=== PATIENT | male | born 1960 | race Caucasian/White ===

== ENCOUNTER → 2017-01-31 | Outpatient (CLI) | payer BC ==
[~2017-01-31] MED LIST: ASPI-586 PO; ATOR80TA76 PO; Aspirin PO; Atorvastatin Calcium PO; FENO145T20 PO; LOSA50TA36 PO; METO-333 PO; METO25TA2 PO; OLME20TA21 PO; OMEP40CA36 PO
[2017-01-31 08:47] LABS: ALANINE AMINOTRANSFERASE 15 U/L (0-55); ALBUMIN 4.1 G/DL (3.2-4.5); ANION GAP 8 MMOL/L (5-14); ASPARTATE AMINO TRANSFERASE 20 U/L (5-34); BILIRUBIN,TOTAL 0.4 MG/DL (0.1-1.0); BLOOD UREA NITROGEN 18 MG/DL (7-18); BUN/CREATININE RATIO 16; CALCIUM 9.7 MG/DL (8.5-10.1); CARBON DIOXIDE 27 MMOL/L (21-32); CHLORIDE 106 MMOL/L (98-107); CHOLESTEROL 213 MG/DL (< 200); CREATININE SERUM 1.13 MG/DL (0.60-1.30); DIRECT LDL 147 MG/DL (1-129); GFR ESTIMATED > 60; GLUCOSE 90 MG/DL (70-105); POTASSIUM 3.6 MMOL/L (3.6-5.0); SODIUM 141 MMOL/L (135-145); TRIGLYCERIDES 61 MG/DL (<150); VLDL CHOLESTEROL 12 MG/DL (5-40)
== END ==
LOC: LAB 08:18
PROVIDERS: ATTEND Physician Assistant
DX: I25.10 Atherosclerotic heart disease of native coronary artery without angina pectoris (principal); I50.22 Chronic systolic (congestive) heart failure; E78.2 Mixed hyperlipidemia; I10 Essential (primary) hypertension
CPT/HCPCS: 36415; 80053; 80061

== ENCOUNTER → 2017-09-15 | Outpatient (CLI) | payer BC ==
[~2017-09-15] MED LIST changes: +BARIUM SUSPENSION 105% (LIQUID POLIBAR PLUS) 240 ML/DOSE PO ONE; +BARIUM SUSPENSION 60% (LIQUID EZ PAQUE) 240 ML DOSE PO ONE
--- NOTE | 2017-09-15 13:11 | Diagnostic Imaging Report ---
EXAMINATION: Barium swallow double-contrast. INDICATION: Dysphagia. Suspected Zenker's diverticulum FLUOROSCOPY TIME: 1 minute and 56 seconds. TECHNIQUE: A hydrochloric acid operator image of the chest was performed. Subsequently, the patient was given gas forming granules for oral ingestion followed by thick and thin barium to drink. Swallowing through the esophagus was observed with fluoroscopy and overhead images as well as multiple spot images in the upright and prone positions were taken. FINDINGS: The hydrochloric acid operator image of the chest demonstrates no significant abnormality. No significant reflux was seen during the study. Normal motility is seen. There is accumulation of contrast in a pouch located posterior to the upper esophagus with a total size of 4.6 x 2.1 x 4 cm. The communication with the esophagus is at the C6 level. This is suggestive of a Zenker's diverticulum. There is a small to moderate-sized sliding hiatal hernia. The esophagus otherwise is normal in contour and caliber. No significant motility dysfunction although occasional tertiary contractions are seen. IMPRESSION: 1. There is a Zenker's diverticulum. 2. Small to moderate sliding hiatal hernia. The report was faxed to the office of Dr. Gurpreet Veronica by KAYLIN@ 1:10 PM. Dictated by: Dictated on workstation # [id number]
== END ==
LOC: RAD 10:09
PROVIDERS: ATTEND Otolaryngology Otolaryngology/Facial Plastic Surgery
DX: K22.5 Diverticulum of esophagus, acquired (principal); K44.9 Diaphragmatic hernia without obstruction or gangrene
CPT/HCPCS: 74220

== ENCOUNTER → 2018-02-06 | Outpatient (CLI) | payer BC ==
[~2018-02-06] MED LIST changes: -BARIUM SUSPENSION 105% (LIQUID POLIBAR PLUS) 240 ML/DOSE PO ONE; -BARIUM SUSPENSION 60% (LIQUID EZ PAQUE) 240 ML DOSE PO ONE; -FENO145T20 PO; +FENO145T37 PO
== END ==
LOC: CARD 09:55
PROVIDERS: ATTEND Internal Medicine Cardiovascular Disease
DX: I25.10 Atherosclerotic heart disease of native coronary artery without angina pectoris (principal); I11.0 Hypertensive heart disease with heart failure; I50.22 Chronic systolic (congestive) heart failure; R07.9 Chest pain, unspecified; E78.5 Hyperlipidemia, unspecified; I44.7 Left bundle-branch block, unspecified; Z80.9 Family history of malignant neoplasm, unspecified; I08.1 Rheumatic disorders of both mitral and tricuspid valves
CPT/HCPCS: 93306

== ENCOUNTER → 2018-02-21 | Outpatient (CLI) | payer BC ==
[2018-02-21 08:48] LABS: ALBUMIN 4.3 GM/DL (3.2-4.5); BILIRUBIN,DIRECT 0.2 MG/DL (0.0-0.3); BILIRUBIN,INDIRECT 0.5 MG/DL; BILIRUBIN,TOTAL 0.7 MG/DL (0.1-1.0); TOTAL PROTEIN 6.9 GM/DL (6.4-8.2)
== END ==
LOC: LAB 08:09
PROVIDERS: ATTEND Internal Medicine Cardiovascular Disease
DX: I25.10 Atherosclerotic heart disease of native coronary artery without angina pectoris (principal); I11.0 Hypertensive heart disease with heart failure; I50.9 Heart failure, unspecified; R07.89 Other chest pain; I44.7 Left bundle-branch block, unspecified; E78.5 Hyperlipidemia, unspecified
CPT/HCPCS: 36415; 80061; 80076

== ENCOUNTER 2019-01-02 05:42 | Outpatient (CLI) | payer BC ==
[~2019-01-02] VITALS: Ht 182.9 cm; Wt 90.7 kg
[~2019-01-02 05:42] MED LIST changes: -LOSA50TA36 PO; +LOSA50TA63 PO
[2019-01-02] MEDS ORDERED: PANT40TA3 PO (09:56)
[2019-01-02] MEDS ORDERED: ATOR40TA70 PO (09:56)
== END 2019-01-02 09:59 | disposition home or self-care (01) ==
LOC: PREOP 05:42
PROVIDERS: ATTEND Specialist
DX: Z01.818 Encounter for other preprocedural examination (principal)

== ENCOUNTER 2019-01-04 05:59 | Day surgery (SDC) | payer BC ==
[~2019-01-04] VITALS: Ht 182.9 cm; Wt 90.7 kg
[~2019-01-04 05:59] MED LIST changes: +ATOR40TA70 PO; +PANT40TA3 PO
[2019-01-04 06:00] VITALS: BP 147/84
[2019-01-04] MEDS ORDERED: LIDOCAINE PF 1% 2 ML AMP IR PRN (06:15)
[2019-01-04] MEDS ORDERED: TIMOLOL MALEATE 0.5% 5 ML (TIMOPTIC) BTL OU PRN (06:15)
[2019-01-04] MEDS ORDERED: POVIDONE (BETADINE) OPHTH SOLN 5% 30 ML OP ONE (06:15)
[2019-01-04] MEDS ORDERED: MOXIFLOXACIN OPHTH SOLN 5 MG/ML 0.3 ML SYRINGE OP ONE (06:15)
[2019-01-04] MEDS: TETRACAINE 0.5% OPHTH SOLN 4 ML BTL (SINGLE DOSE ONLY) OU PRN ×4 (06:19→06:41)
[2019-01-04] MEDS: CYCLOPENTOLATE 1% (CYCLOGYL) 2 ML DROPS OP SCH ×3 (06:29→06:41)
[2019-01-04] MEDS: PHENYLEPHRINE 10% OPHTH (NEO-SYN) 5 ML BTL OU SCH ×3 (06:30→06:41)
[2019-01-04] MEDS ORDERED: MIDAZOLAM 2 MG/2 ML (VERSED) VIAL ONE (06:52)
--- NOTE | 2019-01-04 07:02 | Ophthalmologist Pre-Op Note ---
Pre-Operative Progress Note H&P Reviewed The H&P was reviewed, patient examined and no changes noted. Date H&P Reviewed: Jan 04, 2019 Time H&P Reviewed: 07:02 Pre-Op Dx Cataract, Right Eye DARIEL MCKENZIE MD Jan 04, 2019 07:02
--- NOTE | 2019-01-04 07:28 | Ophthalmology Operative Report ---
Cataract removal/placement IOL PREOPERATIVE DIAGNOSIS: Cataract Right Eye POSTOPERATIVE DIAGNOSIS: Cataract Right Eye PROCEDURE: Cataract removal and placement of posterior chamber implant, right eye SURGEON: Harley Mckenzie ANESTHESIA: Topical with sedation COMPLICATIONS: None ESTIMATED BLOOD LOSS: Minimal DESCRIPTION OF PROCEDURE: After proper informed consent was obtained, the patient, a 58 male, was taken to the Operating Room and the right eye was anesthetized with tetracaine. The right eye was then prepped and draped in the usual manner. A wire lid speculum was placed. A paracentesis was made at the left hand position. Preservative free lidocaine was injected into the anterior chamber followed by viscoelastic. A clear corneal incision was made in the temporal position. A capsulorrhexis was preformed and the central nuclear and cortical material were removed. The posterior capsule was polished and Sami 23.5 AU00T0 IOL was placed into the capsular bag. The residual viscoelastic was aspirated and balanced saline solution was injected into the anterior chamber. Moxifloxacin was injected into the anterior chamber. The wound was checked and found to be water tight. The patient tolerated the procedure well without complications. HARLEY MCKENZIE MD Jan 04, 2019 07:28
[2019-01-04] MEDS ORDERED: acetaZOLAMIDE ER 500 MG CAP (DIAMOX SEQUELS) PO ONE (07:30)
[2019-01-04 07:38] VITALS: BP 123/78
== END 2019-01-04 07:37 | disposition home or self-care (01) ==
LOC: SDC 05:59
PROVIDERS: ATTEND Specialist
DX: H25.11 Age-related nuclear cataract, right eye (principal); I10 Essential (primary) hypertension; K21.9 Gastro-esophageal reflux disease without esophagitis; Z79.82 Long term (current) use of aspirin; Z79.899 Other long term (current) drug therapy

== ENCOUNTER 2019-01-30 11:30 | Outpatient (CLI) | payer BC ==
[~2019-01-30] VITALS: Ht 182.9 cm; Wt 90.7 kg
== END 2019-01-30 14:51 | disposition home or self-care (01) ==
LOC: PREOP 11:30
PROVIDERS: ATTEND Specialist
DX: Z01.818 Encounter for other preprocedural examination (principal)

== ENCOUNTER 2019-02-01 07:36 | Day surgery (SDC) | payer BC ==
[~2019-02-01] VITALS: Ht 182.9 cm; Wt 90.7 kg
[2019-02-01 07:45] VITALS: BP 133/87
[2019-02-01] MEDS ORDERED: LIDOCAINE PF 1% 2 ML AMP IR PRN (08:00)
[2019-02-01] MEDS ORDERED: MOXIFLOXACIN OPHTH SOLN 5 MG/ML 0.3 ML SYRINGE OP ONE (08:00)
[2019-02-01] MEDS ORDERED: POVIDONE (BETADINE) OPHTH SOLN 5% 30 ML OP ONE (08:00)
[2019-02-01] MEDS: TETRACAINE 0.5% OPHTH SOLN 4 ML BTL (SINGLE DOSE ONLY) OU PRN ×4 (08:00→08:10)
[2019-02-01] MEDS ORDERED: TIMOLOL MALEATE 0.5% 5 ML (TIMOPTIC) BTL OU PRN (08:00)
--- NOTE | 2019-02-01 08:00 | Progress Note-Pre Operative ---
Pre-Operative Progress Note H&P Reviewed The H&P was reviewed, patient examined and no changes noted. Date Seen by Provider: February 01, 2019 Time Seen by Provider: 08:00 Date H&P Reviewed: February 01, 2019 Time H&P Reviewed: 08:00 Pre-Operative Diagnosis: Refractive [place] R eye DARIEL MCKENZIE MD February 01, 2019 08:00
[2019-02-01] MEDS: CYCLOPENTOLATE 1% (CYCLOGYL) 2 ML DROPS OP SCH ×3 (08:04→08:10)
[2019-02-01] MEDS: PHENYLEPHRINE 10% OPHTH (NEO-SYN) 5 ML BTL OU SCH ×3 (08:04→08:10)
[2019-02-01] MEDS ORDERED: MIDAZOLAM 2 MG/2 ML (VERSED) VIAL ONE (08:12)
[2019-02-01 09:00] VITALS: BP 127/78
[2019-02-01] MEDS ORDERED: acetaZOLAMIDE ER 500 MG CAP (DIAMOX SEQUELS) PO ONE (09:00)
--- NOTE | 2019-02-01 10:38 | Anesthesia-General Post-Op ---
MAC Patient Condition Mental Status/LOC: Same as Preop Cardiovascular: Satisfactory Nausea/Vomiting: Absent Respiratory: Satisfactory Pain: Controlled Complications: Absent Post Op Complications Complications None Follow Up Care/Instructions Patient Instructions None needed. Anesthesiology Discharge Order Discharge Order Patient was seen after the procedure and he was doing well, no complaints, stable vital signs, no apparent adverse anesthesia problems. RAE DAVENPORT DO February 01, 2019 10:38
--- NOTE | 2019-02-01 20:02 | OPERATIVE REPORT ---
DATE OF SERVICE: 02/01/2019 PREOPERATIVE DIAGNOSIS: Refractive surprise, right eye. POSTOPERATIVE DIAGNOSIS: Refractive surprise, right eye. PROCEDURE: IOL exchange, right eye. ANESTHESIA: Topical with IV sedation. COMPLICATIONS: None. DESCRIPTION OF PROCEDURE: An informed consent was obtained from the patient and placed in the chart. His right pupil was dilated and then the eye was anesthetized. Then, he was taken to the operating room and placed in the supine position on the operating table. He was sedated by the anesthesia provider. He was prepped and draped in the usual sterile fashion. A wire lid speculum was placed. Attention was directed to the patient's right eye and the previous paracentesis was reopened and preservative-free lidocaine was injected into the anterior chamber followed by viscoelastic. The temporal incision was then reopened with a spatula as well. A spatula and chopper were used to free up the lens inside the bag and then the lens was prolapsed out of the capsular bag into the anterior chamber. Vannas scissors were used to cross cut the lens and the fragments were removed from the eye. The anterior chamber was refilled with viscoelastic and an [place] AU00T0 19.5 diopter lens was placed into the capsular bag. The residual viscoelastic was aspirated. Anterior chamber was inflated to the appropriate pressure with balance salt saline and moxifloxacin was injected into the anterior chamber. The wounds were checked and found to be watertight. The wire lid speculum was removed. The surgical drapes were then removed as well. The patient tolerated the procedure well and was taken to the recovery room in stable condition. Job ID: [id number] DocumentID: [id number] Dictated Date: 02/01/2019 09:52:53 Social Economist Date: 02/01/2019 20:01:12 Dictated By: DARIEL MCKENZIE MD
== END 2019-02-01 09:00 | disposition home or self-care (01) ==
LOC: SDC 07:36
PROVIDERS: ATTEND Specialist
DX: H59.091 Other disorders of the right eye following cataract surgery (principal); I10 Essential (primary) hypertension; K21.9 Gastro-esophageal reflux disease without esophagitis; Z79.82 Long term (current) use of aspirin; Z79.899 Other long term (current) drug therapy

== ENCOUNTER → 2019-07-18 | Outpatient (CLI) | payer BC, OTHER ==
[2019-07-18 09:16] LABS: ALANINE AMINOTRANSFERASE 25 U/L (0-55); ALBUMIN 4.3 GM/DL (3.2-4.5); ALKALINE PHOSPHATASE 49 U/L (40-136); BILIRUBIN,TOTAL 0.5 MG/DL (0.1-1.0); BUN/CREATININE RATIO 15; CALCIUM 9.5 MG/DL (8.5-10.1); CARBON DIOXIDE 27 MMOL/L (21-32); CHLORIDE 109 MMOL/L (98-107); CHOLESTEROL 161 MG/DL (< 200); CREATININE SERUM 1.14 MG/DL (0.60-1.30); GFR ESTIMATED > 60; GLUCOSE 96 MG/DL (70-105); HDL CHOLESTEROL 52 MG/DL (40-60); POTASSIUM 3.9 MMOL/L (3.6-5.0); SODIUM 144 MMOL/L (135-145); TOTAL PROTEIN 7.1 GM/DL (6.4-8.2); TRIGLYCERIDES 55 MG/DL (<150); VLDL CHOLESTEROL 11 MG/DL (5-40)
== END ==
LOC: LAB 08:43
PROVIDERS: ATTEND Internal Medicine Cardiovascular Disease
DX: I11.0 Hypertensive heart disease with heart failure (principal); I50.9 Heart failure, unspecified; I25.10 Atherosclerotic heart disease of native coronary artery without angina pectoris; E78.2 Mixed hyperlipidemia; I44.7 Left bundle-branch block, unspecified
CPT/HCPCS: 36415; 80053; 80061

== ENCOUNTER → 2019-08-01 | Outpatient (CLI) | payer BC | LOC: CARD 09:52 | PROVIDERS: ATTEND Internal Medicine Cardiovascular Disease | DX: I08.0 Rheumatic disorders of both mitral and aortic valves (principal); I25.10 Atherosclerotic heart disease of native coronary artery without angina pectoris; I10 Essential (primary) hypertension; I44.7 Left bundle-branch block, unspecified; E78.2 Mixed hyperlipidemia | CPT/HCPCS: 93306 ==

== ENCOUNTER 2020-09-01 05:34 | Outpatient (RCR) | payer BC ==
[~2020-09-01] VITALS: Ht 182 cm; Wt 95.4 kg
[~2020-09-01 05:34] MED LIST changes: +ASPI-999 PO; +FENO145T26 PO; -FENO145T37 PO; +OLME20TA24 PO; +OMEP40CA27 PO; -OMEP40CA36 PO; -PANT40TA3 PO; +PANT40TA52 PO
== END 2020-09-01 10:52 | disposition home or self-care (01) ==
LOC: PREOP 05:34
PROVIDERS: ATTEND Internal Medicine
DX: Z01.818 Encounter for other preprocedural examination (principal); Z12.11 Encounter for screening for malignant neoplasm of colon

== ENCOUNTER 2020-10-09 10:00 | Outpatient (RCR) | payer BC ==
[~2020-10-09] VITALS: Ht 182.9 cm; Wt 95.4 kg
== END 2020-10-09 11:10 | disposition home or self-care (01) ==
LOC: PREOP 10:00
PROVIDERS: ATTEND Internal Medicine
DX: Z01.812 Encounter for preprocedural laboratory examination (principal)

== ENCOUNTER 2020-10-16 07:02 | Day surgery (SDC) | payer BC ==
--- NOTE | 2020-08-23 05:41 | HISTORY AND PHYSICAL ---
DATE OF SERVICE: COLONOSCOPY HISTORY AND PHYSICAL DATE OF ADMISSION: 09/04/2020. REFERRING PHYSICIAN: NASIR Monson HISTORY OF PRESENT ILLNESS: The patient is a 59-year-old white male referred by Dr. Richards for screening colonoscopy. He reports it has probably been longer than 11 or 12 years ago, when he had his first colonoscopy. He believes it was for screening purposes. He may have had a polyp, but he does not recall. He states that he has been doing well. He is not aware of any bright red blood per rectum, melena, bowel habit change or abdominal pain. PAST MEDICAL HISTORY: Significant for hyperlipidemia and hypertension with no known history of coronary artery disease. He had an episode of chest discomfort a year or two ago and ultimately underwent cardiac catheterization reports and no significant blockage was noted. He does report that he for some time has had left bundle branch block on EKG. PAST SURGICAL HISTORY: He has had right inguinal hernia repair twice last with mesh in 1999 and had a Zenker's diverticulum repair at in 11/2017. FAMILY HISTORY: Father of complications of gastric cancer at the age of 66. Mother at age of 87 with metastatic breast cancer. Has one brother, who of a brain tumor at the age of 46. Has one younger brother a year or two his vesna, with no reported health problems. He is not aware of any family history for colon cancer. SOCIAL HISTORY: He has no past smoking history, social alcohol intake. He is employed. REVIEW OF SYSTEMS: CONSTITUTIONAL: He denies night sweats, chills, fever or change in weight or appetite. CARDIOVASCULAR: He denies chest pain, syncope, orthopnea, PND or pedal edema. PULMONARY: Denies cough, shortness of breath or wheezing. GASTROINTESTINAL: As noted in the HPI. PHYSICAL EXAMINATION: GENERAL: Reveals a well-appearing, normal weight white male in no acute distress. VITAL SIGNS: Weight 214 pounds and blood pressure 120/82. HEENT: Unremarkable. CHEST: Clear. CARDIOVASCULAR: Revealed a regular rate and rhythm without murmur, S3 or S4. ABDOMEN: Soft, supple without mass, organomegaly or tenderness. EXTREMITIES: Revealed no cyanosis, clubbing or edema. ASSESSMENT AND PLAN: The patient was set up on 09/04/2020 for screening colonoscopy. He was advised to discontinue his low dose aspirin. Prep instructions with Suprep kit were given and questions were answered. Job ID: [id number] DocumentID: [id number] Dictated Date: 08/20/2020 15:06:09 Skeins Yarn Examiner Date: 08/20/2020 15:47:56 Dictated By: DEL ARVIZU MD
[~2020-10-16] VITALS: Ht 182.9 cm; Wt 95.4 kg
[2020-10-16] MEDS ORDERED: LACTATED RINGERS 1,000 ML IV STA (07:05)
[2020-10-16] MEDS ORDERED: D5 LR IV SOLUTION 1,000 ML IV ONE (07:12)
[2020-10-16] MEDS ORDERED: MIDAZOLAM 5 MG/5 ML (VERSED) VIAL IV ONE (07:15)
[2020-10-16] MEDS ORDERED: D5 1/2 NS 1000 ML IV SOLUTION 1,000 ML IV SCH (07:15)
[2020-10-16] MEDS ORDERED: fentaNYL INJECTION 100 MCG/2 ML AMP IVP ONE (07:15)
[2020-10-16] MEDS ORDERED: LIDOCAINE JELLY 2% 6 ML SYRINGE MM PRN (07:15)
[2020-10-16 07:25] VITALS: BP 127/85
[2020-10-16] MEDS ORDERED: MIDAZOLAM 5 MG/5 ML (VERSED) VIAL ONE (07:43)
[2020-10-16] MEDS ORDERED: fentaNYL INJECTION 100 MCG/2 ML AMP ONE (07:43)
[2020-10-16] MEDS ORDERED: LIDOCAINE JELLY 2% 6 ML SYRINGE ONE (07:43)
--- NOTE | 2020-10-16 07:51 | HISTORY AND PHYSICAL ---
DATE OF SERVICE: ADDENDUM The patient is a 60-year-old white male referred for screening colonoscopy by Dr. Richards. He was initially seen on 08/23/2020, but had to reschedule. In the interim, he reports no changes in his health, no change in medication. He has been feeling well without chest pain, shortness of breath, cough, night sweats, chills or fever. PHYSICAL EXAMINATION: GENERAL: Reveals a well-appearing white male, in no acute distress. VITAL SIGNS: Blood pressure 120/78. CHEST: Clear. CARDIOVASCULAR: Revealed a regular rate and rhythm without murmur, S3 or S4. EXTREMITIES: Reveal no cyanosis, clubbing or edema. ASSESSMENT AND PLAN: No contraindications to proceeding with planned colonoscopy scheduled in the morning of 10/16/2020. Job ID: [id number] DocumentID: [id number] Dictated Date: 10/15/2020 14:00:45 Social Director Date: 10/15/2020 15:50:15 Dictated By: DEL ARVIZU MD
[2020-10-16] MEDS ORDERED: D5 LR IV SOLUTION 1,000 ML IV SCH (08:00)
[2020-10-16] MEDS ORDERED: PROPOFOL INJECTION 50 ML IV ONE (08:03)
--- NOTE | 2020-10-16 08:08 | Pre-Op Note & Conscious Sedat ---
Pre-Operative Progress Note H&P Reviewed The H&P was reviewed, patient examined and no changes noted. Date H&P Reviewed: Oct 16, 2020 Time H&P Reviewed: 08:08 Conscious Sedation Pre-Proced ASA Score 2 For ASA 3 and 4: Consider anesthesia and medical clearance. Also, for patients with a history of failed moderate sedation consider anesthesia. Airway Lungs Heart ASA score ASA 1: a normal healthy patient ASA 2: a patient with a mild systemic disease (mid diabetes, controlled hypertension, obesity ASA 3: a patient with a severe systemic disease that limits activity (angina, COPD, prior Myocardial infarction) ASA 4: a patient with an incapacitating disease that is a constant threat to life (CHF, renal failure) ASA 5: a moribund patient not expected to survive 24 hrs. (ruptured aneurysm) ASA 6: a declared brain- patient whose organs are being harvested. For emergent operations, add the letter E after the classification Mallampati Classification Grade 2 Sedation Plan Analgesia, Amnesia, Plan communicated to team members, Discussed options with patient/fam, Discussed risks with patient/fam The patient is an appropriate candidate to undergo the planned procedure, sedation, and anesthesia. The patient immediately re-assessed prior to indication. DEL ARVIZU MD Oct 16, 2020 08:08
[2020-10-16 08:40] VITALS: BP 119/63
[2020-10-16 08:45] VITALS: BP 115/77
[2020-10-16 08:50] VITALS: BP 115/77
[2020-10-16 09:35] VITALS: BP 115/77
--- NOTE | 2020-10-16 11:21 | Anesthesia-General Post-Op ---
MAC Patient Condition Mental Status/LOC: Same as Preop Cardiovascular: Satisfactory Nausea/Vomiting: Absent Respiratory: Satisfactory Pain: Controlled Complications: Absent Post Op Complications Complications None Follow Up Care/Instructions Patient Instructions None needed. Anesthesiology Discharge Order Discharge Order Patient is doing well, no complaints, stable vital signs, no apparent adverse anesthesia problems. No complications reported per nursing. BYRON ZAVALA CRNA Oct 16, 2020 11:21
--- NOTE | 2020-10-16 13:03 | OPERATIVE REPORT ---
DATE OF SERVICE: COLONOSCOPY SUMMARY INDICATION FOR THE PROCEDURE: Screening colonoscopy. DESCRIPTION OF PROCEDURE: The patient was placed in the left lateral decubitus position. Prior to undergoing colonoscopy, digital rectal evaluation was performed. Anal sphincter tone was normal and the perianal reflexes intact. Prostate is mildly enlarged, anodular and nontender to digital inspection. The colonoscope was then inserted into the rectum and under direct visualization advanced to cecum. The cecum was identified by identification of the ileocecal valve and cecal strap. Photographic documentation was obtained. Quality of prep was good. The patient tolerated the procedure well. Done under Diprivan based anesthesia. FINDINGS: There was no evidence for internal or external hemorrhoids. Present in the distal rectum was a diminutive hyperplastic-appearing polyp, was photographed and biopsied and ablated with no subsequent blood loss. The remainder of the rectum was unremarkable. Several small sigmoid diverticulum were present without evidence for diverticulitis. No other sigmoid colonic abnormalities were appreciated. The descending colon, splenic flexure, transverse colon, hepatic flexure, ascending colon and cecum were unremarkable. ASSESSMENT: 1. Diminutive hyperplastic appearing polyp was removed via hot forceps from the distal rectum. No evidence for neoplasia was identified on today's procedure. We would add consideration for repeat screening colonoscopy in 10 years. 2. Mild diverticular disease confined to the sigmoid colon was present without evidence for diverticulitis. 3. Digital evaluation of the prostate is compatible with mild benign prostatic hypertrophy. I thank you for the referral of this pleasant gentleman. Job ID: [id number] DocumentID: [id number] Dictated Date: 10/16/2020 08:43:31 Hydraulic Lift Operator Date: 10/16/2020 13:03:08 Dictated By: DEL ARVIZU MD
== END 2020-10-16 09:35 | disposition home or self-care (01) ==
LOC: ENDO 07:02
PROVIDERS: ATTEND Internal Medicine
DX: Z12.11 Encounter for screening for malignant neoplasm of colon (principal); K62.1 Rectal polyp; K57.30 Diverticulosis of large intestine without perforation or abscess without bleeding; I11.0 Hypertensive heart disease with heart failure; I50.9 Heart failure, unspecified; I20.9 Angina pectoris, unspecified; I10 Essential (primary) hypertension; E78.5 Hyperlipidemia, unspecified; I44.7 Left bundle-branch block, unspecified; Z79.899 Other long term (current) drug therapy; Z80.0 Family history of malignant neoplasm of digestive organs; Z80.3 Family history of malignant neoplasm of breast

== ENCOUNTER → 2022-01-05 | Outpatient (CLI) | payer BC ==
[~2022-01-05] MED LIST changes: -OMEP40CA27 PO; +OMEP40CA6 PO
[2022-01-05 09:28] LABS: ALBUMIN 4.2 GM/DL (3.2-4.5); BILIRUBIN,TOTAL 0.7 MG/DL (0.1-1.0); CALCIUM 9.5 MG/DL (8.5-10.1); CREATININE SERUM 1.15 MG/DL (0.60-1.30); POTASSIUM 3.9 MMOL/L (3.6-5.0)
== END ==
LOC: LAB 08:30
PROVIDERS: ATTEND Physician Assistant
DX: E78.2 Mixed hyperlipidemia (principal)
CPT/HCPCS: 36415; 80053; 80061

== ENCOUNTER → 2022-10-10 | Outpatient (CLI) | payer BC ==
[2022-10-10 09:34] LABS: CHOLESTEROL 179 MG/DL (< 200); HDL CHOLESTEROL 57 MG/DL (40-60); TRIGLYCERIDES 41 MG/DL (<150); VLDL CHOLESTEROL 8 MG/DL (5-40)
[2022-10-10 12:27] LABS: ALBUMIN 4.1 GM/DL (3.2-4.5); BILIRUBIN,TOTAL 0.5 MG/DL (0.1-1.0); CALCIUM 9.6 MG/DL (8.5-10.1); CREATININE SERUM 1.08 MG/DL (0.60-1.30); TOTAL PROTEIN 6.9 GM/DL (6.4-8.2)
== END ==
LOC: LAB 08:45
PROVIDERS: ATTEND Physician Assistant
DX: E78.2 Mixed hyperlipidemia (principal)
CPT/HCPCS: 36415; 80053; 80061

== ENCOUNTER → 2022-10-14 | Outpatient (CLI) | payer BC | LOC: CARD 12:41 | PROVIDERS: ATTEND Physician Assistant | DX: I10 Essential (primary) hypertension (principal); I25.10 Atherosclerotic heart disease of native coronary artery without angina pectoris | CPT/HCPCS: 93306 ==